=== PATIENT | male | born 1980 | race Caucasian/White ===

== ENCOUNTER 2021-06-17 10:02 | Emergency (ER) | payer OTHER, SELFPAY ==
[2021-06-17 10:22] VITALS: BP 107/76; PULSE 78; RESP 16; TEMP 36.8; O2SAT 98
--- NOTE | 2021-06-17 10:28 | ED.GENADULT ---
HPI - General Adult General Chief complaint: Upper Respiratory Infection Stated complaint: Sore Throat Source: patient Mode of arrival: ambulatory Limitations: no limitations History of Present Illness HPI narrative: Patient presents for evaluation of sore throat for the last 2 days. He has some associated body aches but denies any fever, chills, nausea, vomiting, respiratory symptoms. No recent sick contacts to his knowledge. He has never had Covid that he is aware of. He has received COVID vaccination. He did not receive a flu shot this season. He is not taking any medications to assist with his symptoms. No additional complaints or concerns. Related Data Allergies Allergy/AdvReac Type Severity Reaction Status Date / Time No Known Allergies Allergy Verified 06/17/21 10:26 Review of Systems Review of Systems: CONSTITUTIONAL: Denies fever, chills, or sweats. EYES: Denies visual changes, redness, or discharge. ENT: Reports sore throat. Denies rhinorrhea, congestion, or otalgia. CARDIOVASCULAR: Denies chest pain, palpitations, or edema. RESPIRATORY: Denies cough or dyspnea. GASTROINTESTINAL: Denies abdominal pain, nausea, vomiting, or diarrhea. GENITOURINARY: Denies dysuria or hematuria. SKIN: Denies rash or itching. MUSCULOSKELETAL: Denies back pain, joint pain, or myalgia. NEUROLOGIC: Denies headache, numbness, dizziness, or weakness. PSYCHIATRIC: Denies anxiety or depression. [facility] Past Medical History Medical History (Updated 06/17/21 @ 10:35 by Saul Lopez, [facility], ) Obstructive sleep apnea Surgical History Surgical History No pertinent past surgical history Family History Family History Father Heart disease Social History Social History Smoking status: Former smoker Substance use: current Living arrangements: with family Gender identity (if verbalized by the patient): Male Sexual Orientation (if Verbalized by the Patient): Straight or Heterosexual Spiritual care concerns: No Exam Narrative: GENERAL: Well-appearing, well-nourished, and in no acute distress. HEAD: Normocephalic, atraumatic. EYES: PERRLA and EOMI. ENT: Nares clear, no rhinorrhea or epistaxis. Mucous membranes moist. There is posterior pharyngeal erythema. Oropharynx without tonsillar hypertrophy exudate or other lesions. Bilateral TMs pearly herrera nonbulging NECK: Supple. No adenopathy or masses. No carotid bruits or JVD CHEST: Clear to auscultation. No respiratory distress. No wheezes rales or rhonchi HEART: Regular rate and rhythm. No murmur heard. Normal peripheral pulses. ABDOMEN: Soft, nontender, nondistended, normal active bowel sounds. EXTREMITIES: Normal range of motion. No edema. SKIN: Warm, dry, no rash. NEURO: No focal deficits. Alert and oriented x3. PSYCH: Normal mood and affect. Course Course Emergency Course: This is a 41-year-old male who present with complaints of sore throat. Strep was positive. Will discharge with antibiotics. Advised increase hydration and follow-up outpatient for further evaluation and treatment. Return for worsening symptoms. Level of Care: Express Care Visit Vital Signs Vital signs: Vital Signs Temperature 36.8 C 06/17/21 10:22 Pulse Rate 78 06/17/21 10:22 Respiratory Rate 16 06/17/21 10:22 Blood Pressure 107/76 06/17/21 10:22 Pulse Oximetry 98 06/17/21 10:22 Temperature 36.8 C 06/17/21 10:22 Pulse Rate 78 06/17/21 10:22 Respiratory Rate 16 06/17/21 10:22 Blood Pressure 107/76 06/17/21 10:22 Pulse Oximetry 98 06/17/21 10:22 Medical Decision Making Differential Diagnosis Differential Diagnosis: Strep pharyngitis versus viral pharyngitis versus Covid versus other acute viral syndrome versus other Vital Signs Vital Signs: Vital Signs Temperature
== END 2021-06-17 10:39 | disposition home or self-care (01) ==
PROVIDERS: Emergency Provider Nurse Practitioner
DX: J02.0 Streptococcal pharyngitis (principal); Z87.891 Personal history of nicotine dependence; G47.33 Obstructive sleep apnea (adult) (pediatric)
CPT/HCPCS: 87880; 99203; G0463

== ENCOUNTER 2023-04-20 14:05 | Emergency (ER) | payer OTHER, SELFPAY ==
[2023-04-20 14:15] VITALS: BP 135/84; PULSE 92; RESP 16; TEMP 36.3; O2SAT 98
--- NOTE | 2023-04-20 14:16 | ED.MALEGU ---
HPI - Male Genitourinary General Chief complaint: Urogenital-Male Stated complaint: Urinary Problems Time Seen by Provider: 04/20/23 14:23 Source: patient, RN notes reviewed and old records reviewed Mode of arrival: ambulatory Limitations: no limitations History of Present Illness HPI Narrative: 43 year old male presents to [facility] care with complaints of feeling like he has a urinary tract infection with urgency with urination. Patient reports that Tuesday night he started having left flank pain,lower back pain and some testicle pain and thinks he passed a kidney stone reports he was up all night. He reports no further testicle or left flank pain now has urgency, frequency, and some retention,,concerned for UTI. Patient reports that he has been drinking a lot of water, feels like something lodged in his penis,denies any blood in his urine, has no fever, nausea vomiting or diarrhea. Denies inability to urinate or have bowel movement, denies any concern for STD exposure. MD Complaint: other (urgency thinks he passed a kidney stone) Onset (ago): day(s) (3) Severity scale (1-10): 3 Related Data Allergies Allergy/AdvReac Type Severity Reaction Status Date / Time No Known Allergies Allergy Verified 04/20/23 14:10 Review of Systems Review of Systems: CONSTITUTIONAL: Denies fever, chills, or sweats. CARDIOVASCULAR: Denies chest pain, palpitations, or edema. RESPIRATORY: Denies cough or dyspnea. GASTROINTESTINAL: Denies abdominal pain, nausea, vomiting, or diarrhea. GENITOURINARY: Reports frequency, urgency, retention,feels like something stuck in penis, Denies flank pain or hematuria. SKIN: Denies rash or itching. MUSCULOSKELETAL: Denies back pain or myalgia. Denies CVA tenderness NEUROLOGIC: Denies headache All systems reviewed & are unremarkable except as noted in HPI and below PMFSH Past Medical History Medical History (Updated 04/21/23 @ 08:12 by Geetha Brito NP) Kidney stone on left side Obstructive sleep apnea Surgical History Surgical History No pertinent past surgical history Family History Family History Father Heart disease Social History Social History Smoking status: Former smoker Substance use: current Living arrangements: with family Gender identity (if verbalized by the patient): Male Sexual Orientation (if Verbalized by the Patient): Straight or Heterosexual Spiritual care concerns: No Comments At time of signature, agree with nursing past medical, surgical, social and family history. There is no relevant family history pertinent to the presenting complaint Exam Narrative: GENERAL: Well-appearing, well-nourished, and in no acute distress. HEAD: Normocephalic, atraumatic. NECK: Supple.no lymphadenopathy CHEST: Clear to auscultation. No respiratory distress. HEART: Regular rate and rhythm. No murmur heard. Normal peripheral pulses. ABDOMEN: Soft, nontender, nondistended, normal active bowel sounds. No CVA tenderness, denies any testicle tenderness, reports no difficulty passing urine EXTREMITIES: Normal range of motion. No edema. SKIN: Warm, dry, no rash. NEURO: No focal deficits. Alert and oriented x3. Course Course Emergency Course: Patient is aware of diagnosis, understands and agrees to treatment plan.? Anticipatory guidance given.? Patient agrees to follow-up as directed and is aware of reasons to seek care at the emergency department. Portions of this record may have been created with voice recognition software Level of Care: Express Care Visit Vital Signs Vital signs: Vital Signs Temperature 36.3 C L 04/20/23 14:15 Pulse Rate 92 04/20/23 14:15 Respiratory Rate 16 04/20/23 14:15 Blood Pressure 135/84 04/20/23 14:15 Pulse Oximetry 98 04/20/23 14:15 Oxygen Delivery Ro
== END 2023-04-20 14:45 | disposition home or self-care (01) ==
PROVIDERS: Emergency Provider Registered Nurse
DX: R30.0 Dysuria (principal); R31.9 Hematuria, unspecified; Z87.891 Personal history of nicotine dependence
CPT/HCPCS: 81003; 87086; 99213; G0463